=== PATIENT | male | born 1975 | race Caucasian/White ===

== ENCOUNTER 2020-10-17 13:29 | Outpatient (CLI) | payer OTHER, SELFPAY | END 2020-10-17 13:30 | disposition home or self-care (01) | LOC: ANHAUDIO 13:31 | PROVIDERS: PCP Family Medicine; Referring Provider Family Medicine; Visit Provider Family Medicine | DX: H90.3 Sensorineural hearing loss, bilateral (principal) | CPT/HCPCS: 92557; 92567 ==

== ENCOUNTER 2021-01-02 08:31 | Outpatient (CLI) | payer OTHER, SELFPAY | END 2021-01-02 08:32 | disposition home or self-care (01) | LOC: ANHCOVIDVC 08:31 | PROVIDERS: PCP Family Medicine | DX: Z23 Encounter for immunization (principal) | CPT/HCPCS: 0001A; 91300 ==

== ENCOUNTER 2021-01-13 13:00 | Outpatient (RCR) | payer OTHER, SELFPAY | END 2021-01-13 23:59 | disposition home or self-care (01) | LOC: ANHAUDIO 13:00 | PROVIDERS: PCP Family Medicine; Visit Provider Family Medicine | DX: Z46.1 Encounter for fitting and adjustment of hearing aid (principal) | CPT/HCPCS: 99199; V5260; V5267 ==

== ENCOUNTER 2021-01-23 08:26 | Outpatient (CLI) | payer OTHER, SELFPAY | END 2021-01-23 08:27 | disposition home or self-care (01) | LOC: ANHCOVIDVC 08:26 | PROVIDERS: PCP Family Medicine | DX: Z23 Encounter for immunization (principal) | CPT/HCPCS: 0002A; 91300 ==

== ENCOUNTER 2021-04-15 13:26 | Outpatient (RCR) | payer OTHER, SELFPAY | END 2021-04-15 23:59 | disposition home or self-care (01) | LOC: ANHAUDIO 13:26 | PROVIDERS: PCP Family Medicine; Visit Provider Family Medicine | DX: Z46.1 Encounter for fitting and adjustment of hearing aid (principal) | CPT/HCPCS: 99199 ==

== ENCOUNTER 2025-08-26 12:22 | Emergency (ER) | payer BC, SELFPAY ==
--- NOTE | ~2025-08-26 | XR_ITS ---
Examination: XR chest 2V Clinical History: cp, hypertension Comparison: None Technique: PA and Lateral Findings: Cardiomediastinal silhouette normal size and configuration. Lungs clear. No acute bony abnormality. IMPRESSION: 1. No acute cardiopulmonary findings. Reviewed, dictated and finalized at location R. W MACHINE SET UP OPERATOR
--- NOTE | 2025-08-26 12:25 | ECG_ITS ---
Test Date: 2025-08-26 12:43:12 Measurements Intervals [place] Rate: 69 P: 64 ME: 152 QRS: 52 QRSD: 101 T: 23 QT: 367 QTc: 395 Interpretive Statements SINUS RHYTHM BASELINE ARTIFACT- V5 NORMAL ECG No previous ECG available for comparison Electronically Signed On 08-26-2025 19:31:30 [employer] by Javi No D.O.
[2025-08-26 12:26] VITALS: BP 142/86; PULSE 77; RESP 16; TEMP 36.7; O2SAT 100
[2025-08-26 12:54] VITALS: RESP 20; O2SAT 99
[2025-08-26 12:55] LABS: Hematocrit 45.5 % (42.0-52.0); Hemoglobin 15.7 g/dL (14.0-18.0); Immature Granulocyte Percent A 0.2 % (0-0.5); Lymphocytes Absolute Auto 1.23 K/mm3 (0.9-3.2); Mean Corpuscular HGB Conc 34.5 g/dl (32-36); Mean Corpuscular Hemoglobin 30.6 pg (26-34); Mean Corpuscular Volume 88.7 fl (80-100); Nucleated Red Blood Cells Absolute Auto 0.000 K/mm3 (0.0-0.012); Nucleated Red Blood Cells Perc 0.0 % (0.0-0.2); Platelet Count Result 211 k/mm3 (150-375); Red Blood Count 5.13 M/mm3 (4.6-6.20); White Blood Count 4.9 K/mm3 (4.5-10.0)
--- OUTSIDE RECORDS SUMMARY | 2025-08-26 13:05 | XMS_ITS | Encounter Summary ---
Author Organization [facility] Healthcare Address [address] [place] [id number] Care Team Providers Care Stonecutter Assistant Name Role Phone Chidi Spears [facility] Unavailable Unavailable Zenaida Brown DO Primary Care Provider [phone] Encounter Details Date Type Department Care Team (Late st Contact Info) Description 07/31/2025 Results Follow-Up [facility] Primary Care at [id number] [place] [address] Zenaida Brown DO [address] [facility] [address] [place] [address] Total testosterone, PSA screen, Thyroid Function Thida, Additional followed-up results: 4 Social History Tobacco Use Types Packs/Day Years Used Date Smoking Tobacco: Never Passive Smoke Exposure: Never Smokeless Tobacco: Never Alcohol Use Standard Drinks/Week Comments Yes 5 (1 standard drink = 0.6 oz pur e alcohol) AUDIT-C Answer Date Recorded Q1: How often do you have a drink containing alc ohol? 2-3 times a week 07/28/2024 Q2: How many drinks containi ng alcohol do you have on a typical day when you are drinking? 1 or 2 07/28/2024 Q3: How often do you have si x or more drinks on one occasion? Never 07/28/2024 PHQ-2 Answer Date Recorded PHQ-2 Total Score (If total score is 3 or more points, staff should administer the PHQ-9) 0 07/18/2025 Personal Safety Answer Date Recorded Have you ever been in or are you currently in a harmful physical or emotional relationship or is someone making you feel afraid or unsafe? Denies 01/08/2025 Sex and Gender Information Value Date Recorded Sex Assigned at Not on file Legal Sex Male 6:29 AM [employer] Gender Identity Not on file Sexual Orientation Not on file documented as of this encounter Plan of Treatment Not on file documented as of this encounter Visit Diagnoses Not on filedocumented in this encounter Care Teams Stonecutter Assistant Relationship Specialty Start Date End Date Zenaida Brown DO PCP - General Family Medicine 07/18/25 Chidi Spears, MOVIE EDITOR Speech Language Pathologist Speech Therapy 04/11/25 documented as of this encounter
--- OUTSIDE RECORDS SUMMARY | 2025-08-26 13:05 | XMS_ITS | Clinical Summary ---
Author Organization [facility] Address [address] [address] [place] [address] Phone Care Team Providers Care Process Developer Name Role Phone Kirby Maldonado MD Primary Care Provider [phone] Allergies Active Allergy Reactions Criticality Noted Date Comments Ibuprofen Anaphylaxis High 03/15/2023 Iodinated Contrast Media Anaphylaxis High 03/15/2023 Medications rosuvastatin (CRESTOR) 10 mg tablet Take 10 mg by mouth daily. Active ergocalciferol, vitamin D2, (VITAMIN D ORAL) Take by mouth. Active predniSONE (DELTASONE) 10 mg tablet Take 1 tablet (10 mg) by mouth 4 (four) times a day for 5 days 20 Tablet 07/13/2023 12:56 PM CDT 07/12/2023 Active atorvastatin calcium (ATORVASTATIN ORAL) Take by mouth. Active tiZANidine (ZANAFLEX) 4 mg Tablet Take 1 Tablet (4 mg) by mouth every 8 hours as needed for Spasm or Other (See Comment) (neck discomfort) . 30 Tablet 1 03/29/2024 Active Active Problems No known active problems Social History Tobacco Use Types Packs/Day Years Used Date Smoking Tobacco: Never Smokeless Tobacco: Never Sex and Gender Information Value Date Recorded Sex Assigned at Not on file Legal Sex Male 3:27 PM CDT Gender Identity Not on file Sexual Orientation Not on file Last Filed Vital Signs Vital Sign Reading Time Taken Comments Blood Pressure 124/74 05/30/2024 10:08 AM CDT Pulse 84 05/30/2024 10:08 AM CDT Temperature 36.9 C (98.4 F) 05/30/2024 10:08 AM CDT Respiratory Rate 16 05/30/2024 10:08 AM CDT Oxygen Saturation 96% 03/29/2024 1:42 PM CDT Inhaled Oxygen Concentration - - Weight 84.2 kg (185 lb 9.6 oz) 05/30/2024 10:08 AM CDT Height 182.9 cm (6') 05/30/2024 10:08 AM CDT Body Mass Index 25.17 05/30/2024 10:08 AM CDT Plan of Treatment Health Maintenance Due Date Last Done Comments DTAP/TDAP/TD VACCINES (1 - Tdap) 1995 HEPATITIS B VACCINES (1 of 3 - 19+ 3-dose series) 02/1995 COLORECTAL SCREENING 2021 Colorectal Cancer Screening 2021 FIT-DNA Q 3 years 2021 FIT/FOBT Q 1 year 2021 Flex Sig/CT Colonography Q 5 years 2021 INFLUENZA VACCINE (#1) 2025 Insurance [employer] BLUE ACCESS/TRUE BLUE PPO RX [facility] Care Teams Process Developer Relationship Specialty Start Date End Date Kirby Maldonado MD [address] [place] [address] PCP - General Family Practice 09/22/23
--- OUTSIDE RECORDS SUMMARY | 2025-08-26 13:05 | XMS_ITS | Clinical Summary ---
Author Organization [facility] [place] [address] Address [address] [place] [address] Care Team Providers Care Dental Office Coordinator Name Role Phone Chidi Spears AVIATION PROGRAM MANAGER Unavailable Unavailable Zenaida Brown DO Primary Care Provider [phone] Allergies Active Allergy Reactions Criticality Noted Date Comments Ibuprofen Cough,Hives,Itching, Rash, Shortness of breath,Swelling High 09/20/1989 Perflutren Itching High 01/25/2019 Perflutren Lipid Microspheres Cough,Itching,Shortness of breath,Swelling High 11/03/2018 Medications vitamin D3-vitamin K2 25 mcg (1,000 unit)-90 mcg tablet,disintegrati ng Take by mouth Active rosuvastatin (CRESTOR) 20 mg tabletIndications:M ixed hyperlipidemia Take 1 tablet (20 mg total) by mouth daily 90 tablet 3 Active Active Problems Problem Noted Date Diagnosed Date Cervical radiculopathy 07/18/2025 Left arm pain 03/21/2025 Right arm pain 03/21/2025 Pharyngoesophageal dysphagia 03/15/2025 Left varicocele 11/14/2024 Assessment & Plan (11/14/2024 9:18 AM MATERIAL DAMAGE ADJUSTER): F/U with urology as scheduled. Family history of colon cancer 11/14/2024 Encounter for screening colonoscopy 11/14/2024 Cervical stenosis of spine 07/06/2024 Assessment & Plan (11/14/2024 9:18 AM MATERIAL DAMAGE ADJUSTER): Naseem f/u with Dr. Brambila and will montior response. NO new radicular sypmtoms. Palpitations 05/24/2024 Paroxysmal supraventricular tachycardia 05/24/20 24 Chest pain 11/14/2018 Mixed hyperlipidemia 11/14/2018 Assessment & Plan (07/18/2025 3:40 PM CDT): Chronic, well-controlled Obtain labs Continue rosuvastatin 20 mg daily Orders: Comprehensive metabolic panel; Future Lipid panel; Future Hemoglobin A1c; Future rosuvastatin (CRESTOR) 20 mg tablet; Take 1 tablet (20 mg total) by mouth daily Assessment & Plan (11/14/2024 9:17 AM MATERIAL DAMAGE ADJUSTER): COntinues on rosuvastatin. NO new mylagias/arthralgias. History of melanoma 11/14/2018 Assessment & Plan (11/14/2024 9:18 AM MATERIAL DAMAGE ADJUSTER): Cointinue surveillance [facility] dermatology. REviewed sun/skin protection. Resolved Problems Problem Noted Date Diagnosed Date Resolved Date Essential hypertension 11/14/201805/04 Encounters Date Type Department Care Team Description 07/31/2025 Results Follow-Up [facility] Primary Care at [address] [phone] Zenaida Brown DO Total testosterone, PSA screen, Thyroid Function [place], Additional followed-up results: 4 07/30/2025 2:55 PM MATERIAL DAMAGE ADJUSTER Lab [address] [address] Fatigue, unspecified type; Encounter for well adult exam without abnormal findings; Mixed hyperlipidemia 07/18/2025 3:00 PM CDT Office Visit [facility] Primary Care at [address] [address] Zenaida Brown DO Encounter for well adult exam without abnormal findings (Primary Dx); Mixed hyperlipidemia; Fatigue, unspecified type 06/25/2025 Telephone [facility] Primary Care at [address] [address] Chris Das Jul [address] Grimm cancelled 06/01/2025 7:45 AM CDT Therapy [facility] Outpatient Speech Pathology [address] [facility], [address] [place] [address] Chidi Spears, AVIATION PROGRAM MANAGER Pharyngoesophageal dysphagia (Primary Dx) from Last 3 Months Immunizations Immunization Administration Dates Next Due Influenza, Unspecified 06/18/2025,2023,05/09/2024(Deferr ed: Patient Refused),10/01/2023(Deferred: Patient Refused),05/04/2023(Deferred: Patient Refused),10/01/2022(Deferred: Patient Refused),09/20/2022(Deferred: Patient Refused),09/20/2021(Deferred: Patient Refused) Pfizer Sars-Cov-2 Bivalent Vaccination (12+ YRS) 06/18/2025,06/13/2025 Surgical History Surgery Date Site/Laterality Comments VASECTOMY 2001 ORAL SURGERY as a child MELANOMA RESECTION UPPER GASTROINTESTINAL ENDOSCOPY CARDIAC CATHETERIZATION 09/20/2018 - 09/19/2019 COLONOSCOPY 09/20/2018 - 09/19/2019 SPINE SURGERY 2023 Medical History Medical History Date Comments GERD (gastroesophageal reflux disease) 2007 Anxiety 2001 Arthritis 2004 Cancer (HCC) 2005 Brain concussion 1994 Depression 2011 PONV (postoperative nausea and vomiting) as a child Motion sickness Hypertension 2018 Dizziness 1994 HL (hearing loss) 2014 Dental disease 1981 Fracture of nasal bones 1985 Tinnitus 1997 Speech impairment Jul 2024 Voice disorder Jul 2024 Abnormal ECG 2023 Family History Medical History Relation Name Comments Depression Daughter Zenaida Mar Mental illness Daughter Zenaida Mar Allergy (severe) Father Cali Mar Depression Father Cali Mar Memory loss Father Cali Mar Mental illness Father Caliray Mar Stroke Father Cali Green Heart attack Father's Brother Matt Mar Heart attack Maternal Grandfather Torsten Lyleson Hypertension Mother Krystle Zaid Memory loss Mother Krystle Zaid Heart attack Paternal Grandfather Nito Mar Cancer Sister 1 Natalia Esteban defects Sister 2 Isha Developmental delay Son Chin Mar Learning disabilities Son Chin Mar Relation Name Status Comments Daughter Zenaida Green Father Cali Green Father's Brother Matt Green Maternal Grandfather Torsten Melendez Mother Krystle Green Paternal Grandfather Nito Green Sister 1 Natalia Carlito Sister 2 Isha Son Chin Mar Social History Tobacco Use Types Packs/Day Years Used Date Smoking Tobacco: Never Passive Smoke Exposure: Never Smokeless Tobacco: Never Tobacco Cessation:Counseling Given: Not Answered Alcohol Use Standard Drinks/Week Comments Yes 5 [...] on file Legal Sex Male 6:29 AM MATERIAL DAMAGE ADJUSTER Gender Identity Not on file Sexual Orientation Not on file Last Filed Vital Signs Vital Sign Reading Time Taken Comments Blood Pressure 104/70 07/18/2025 2:56 PM CDT Pulse 85 07/18/2025 2:56 PM CDT Temperature 36.8 C (98.3 F) 04/12/2025 9:43 AM CDT Respiratory Rate 16 07/18/2025 2:56 PM CDT Oxygen Saturation 96% 07/18/2025 2:56 PM CDT Inhaled Oxygen Concentration - - Weight 81.7 kg (180 lb 1.6 oz) 07/18/2025 2:56 P M CDT Height 182.9 cm (6') 07/18/2025 2:56 PM CDT Body Mass Index 24.43 07/18/2025 2:56 PM CDT Plan of Treatment Health Maintenance Due Date Last Done Comments Hepatitis C Screening 1975 DTaP/Tdap/Td Vaccine (1 - Tdap) 1987 Hepatitis B Screening 1994 Covid-19 Vaccine ( season) 2025 06/18/2025, 06/13/2025, 03/06/2023, Additional history exists Depression Screening 07/18/2026 07/18/2025, 11/14/19 Regular Well Visit/Exam 18-64 07/18/2026 07/18/2025, 05/09/2024 Colon Cancer Screening-Colonoscopy 01/08/2035 01/08/2025 Influenza Vaccine Completed 06/18/2025, 07/18/2024 Pneumococcal vaccine <65 Aged Out No longer eligible based on patient's age to complete this topic Medical Devices Implanted Type Area Hostess Device Identifier Shelf Expiration Date Model / Serial / Lot [employer] Maxan 10mm Level 1 Spine Cervical Anterior Plate Bone Titanium [id number] - [id number] Implanted:Qty: 1 on 08/08/2024 at [facility] N/A: Spine Cervical [employer] [id number] / / [employer] 4mm 16mm Fix Screw Bone [id number] - [id number] Implanted:Qty: 4 on 08/08/2024 at [facility] N/A: Spine Cervical [employer] [id number] / / [employer] Cage Spinal Cervical 14d X 16w X 7h 6 Degree [id number] - [id number] Implanted:Qty: 1 on 08/08/2024 at [facility] N/A: Spine Cervical [employer] 05/10/2029 [id number] / / [id number] [employer] Graft Bone Filler Peptide Enhanced Syr I Factor 1cc Putty [id number] - [id number] Implanted:Qty: 1 on 08/08/2024 at [facility] N/A: Spine Cervical [employer] 07/20/2026 [id number] / / [id number] Procedures Procedure Name Priority Date/Time Associated Diagnosis Comments DIFFERENTIAL AUTO Routine 07/30/2025 2:5 9 PM MATERIAL DAMAGE ADJUSTER Encounter for well adult exam without abnormal findings LIPID PANEL Routine 07/30/2025 2:59 PM MATERIAL DAMAGE ADJUSTER Encounter for well adult exam without abnormal findings Mixed hyperlipidemia HEMOGLOBIN A1C Routine 07/30/2025 2:59 PM MATERIAL DAMAGE ADJUSTER Encounter for well adult exam without abnormal findings Mixed hyperlipidemia Fatigue, unspecified type CBC WITH AUTO DIFFERENTIAL Routine 07/30/2025 2:59 PM MATERIAL DAMAGE ADJUSTER Encounter for well adult exam without abnormal findings THYROID FUNCTION CASCADE Routine 07/30/2025 2:59 PM MATERIAL DAMAGE ADJUSTER Encounter for well adult exam without abnormal findings Fatigue, unspecified type PSA SCREEN Routine 07/30/2025 2:59 PM MATERIAL DAMAGE ADJUSTER Encounter for well adult exam without abnormal findings TOTAL TESTOSTERONE Routine 07/30/2025 2: 59 PM MATERIAL DAMAGE ADJUSTER Fatigue, unspecified type COLONOSCOPY 01/08/2025 9:43 AM CDT from Last 3 Months or Most Recently Relevant to Health Maintenance Results * Differential, auto (07/30/2025 2:59 PM MATERIAL DAMAGE ADJUSTER) Pathologist [facility] Neutrophil abs 3.15 1.50 - 6.50 K/cumm Imm gran abs 0.02 0.00 - 0.10 K/cumm [facility] Lymphocyte abs 1.57 0.80 - 3.30 K/cumm [facility] Monocyte abs 0.54 0.20 - 0.80 K/cumm [facility] Eosinophil abs 0.13 0.00 - 0.50 K/cumm [facility] Basophil abs 0.02 0.00 - 0.10 K/cumm [facility] Neutrophil pct 58.0 % [facility] Comment: Interpretive Data Percent cell count reference ranges are not reported, since discordance with absolute values may lead to misinterpretation of CBC data. Current Interpretive Data was last revised on 2017. Imm gran pct 0.4 % [facility] Comment: Interpretive Data Percent cell count reference ranges are not reported, since discordance with absolute values may lead to misinterpretation of CBC data. Current Interpretive Data was last revised on 2017. Lymphocyte pct 28.9 % [facility] Comment: Interpretive Data Percent cell count reference ranges are not reported, since discordance with absolute values may lead to misinterpretation of CBC data. Current Interpretive Data was last revised on 2017. Monocyte pct 9.9 % [facility] Comment: Interpretive Data Percent cell count reference ranges are not reported, since discordance with absolute values may lead to misinterpretation of CBC data. Current Interpretive Data was last revised on 2017. Eosinophil pct 2.4 % [facility] Comment: Interpretive Data Percent cell count reference ranges are not reported, since discordance with absolute values may lead to misinterpretation of CBC data. Current Interpretive Data was last revised on 2017. Basophil pct 0.4 % [facility] Comment: Interpretive Data Percent cell count reference ranges are not reported, since discordance with absolute values may lead to misinterpretation of CBC data. Current Interpretive Data was last revised on 2017. Blood 07/30/2025 2:59 PM MATERIAL DAMAGE ADJUSTER 07/30/2025 8:53 PM MATERIAL DAMAGE ADJUSTER [facility] DO LAB BLOOD ORDERABLES Final Resu lt Performing Organization Address [facility] de Phone Number [address] [place] [address] * Thyroid Function [place] (07/30/2025 2:59 PM MATERIAL DAMAGE ADJUSTER) TSH 2.14 0.30 - 4.20 mcIUnit/mL Blood 07/30/2025 2:59 PM MATERIAL DAMAGE ADJUSTER 07/30/2025 8:51 PM MATERIAL DAMAGE ADJUSTER Zenaida Brown LAB BLOOD ORDERABLES Final Resu Performing Organization Address [facility] de Phone Number [address] [place] [address] * PSA screen (07/30/2025 2:59 PM MATERIAL DAMAGE ADJUSTER) PSA-Total 0.71 ng/mL Comment: Interpretive Data AGE SEX REFERENCE INTERVAL 0 minutes-150 years Female None 0 minutes-49 years Male None 50-59 years Male 0-3.90 60-69 years Male 0-5.40 70-79 years Male 0-6.20 80-150 years Male 0-6.20 The Adrian PSA Total assay procedure was used. Results from different manufacturers or methods may not be comparable. Serial testing should be performed using the same method. Current interpretive data last revised 22. Blood 07/30/2025 2:59 PM MATERIAL DAMAGE ADJUSTER 07/30/2025 8:51 PM MATERIAL DAMAGE ADJUSTER [facility] BLOOD ORDERABLES Final Resu lt Performing Organization Address [facility] de Phone Number JAZZMINE [address] [place] [address] * CBC with auto differential (07/30/2025 2:59 PM MATERIAL DAMAGE ADJUSTER) WBC 5.43 3.80 - 9.90 K/cumm Hgb 15.3 13.0 - 17.5 g/dL [facility] Hct 46.2 38.9 - 50.3 % [facility] Plt 219 150 - 400 K/cumm [facility] MPV 9.9 9.1 - 12.3 fL [facility] RBC 4.95 4.30 - 5.80 M/cumm [facility] MCV 93.3 81.3 - 96.4 fL [facility] MCH 30.9 27.1 - 33.3 pg [facility] MCHC 33.1 32.3 - 35.7 g/dL [facility] RDW CV 12.9 11.1 - 14.9 % [facility] RDW SD 44.0 35.7 - 48.1 fL [facility] NRBC abs 0.00 0.00 - 0.01 K/cumm [facility] Blood 07/30/2025 2:59 PM MATERIAL DAMAGE ADJUSTER 07/30/2025 8:53 PM MATERIAL DAMAGE ADJUSTER [facility] BLOOD ORDERABLES Final Resu lt Performing Organization Address [facility] de Phone Number JAZZMINE [address] [place] [address] * Total testosterone (07/30/2025 2:59 PM MATERIAL DAMAGE ADJUSTER) Testosterone 401.00 249.00 - 836.00 ng/dL Blood 07/30/2025 2:59 PM MATERIAL DAMAGE ADJUSTER 07/30/2025 8:51 PM MATERIAL DAMAGE ADJUSTER [facility] ORDERABLES Final Resu lt Performing Organization Address [facility] de Phone Number JAZZMINE [address] [address] * Hemoglobin A1c (07/30/2025 2:59 PM MATERIAL DAMAGE ADJUSTER) Hgb A1C 5.2 4.0 - 5.6 % Estimated Average Glucose 103 mg/dL JAZZMINE Comment: The ADA recommends reporting an estimated Average Glucose (eAG) with all Hemoglobin A1c results using the equation derived from a study of 507 normal and diabetic adults. Minority populations were underrepresented and children were not included. (Diabetes Care 31:8424-3092, 2008). The eAG is not equivalent to a fasting glucose. Blood 07/30/2025 2:59 PM MATERIAL DAMAGE ADJUSTER 07/30/2025 8:53 PM MATERIAL DAMAGE ADJUSTER [facility] LAB BLOOD ORDERABLES Final Resu lt Performing Organization Address [facility] de Phone Number JAZZMINE [address] [address] * (ABNORMAL) Lipid panel (07/30/2025 2:59 PM MATERIAL DAMAGE ADJUSTER) Cholesterol 236(H) 30 - 199 mg/dL Comment: Interpretive Data Ages < or = 19 years Acceptable: <170 mg/dL Borderline high: 170-199 mg/dL High: >or= 200 mg/dL Ages > or = 20 years Desirable: <200 mg/dL Borderline high: 200-239 mg/dL High: >or= 240 mg/dL Literature References: 1. Expert Panel on Integrated Guidelines for Cardiovascular Health and Risk Reduction in Children and Adolescents. Pediatrics 2011;128:S213 2. NCEP Expert Panel. Circulation 2004;110:227 Current Interpretive Data was last revised on 2018. Triglycerides 174(H) <=149 mg/dL JAZZMINE Comment: Interpretive Data Ages < or = 9 years Acceptable: <75 mg/dL Borderline high: 75-99 mg/dL High: >or= 100 mg/dL Ages 10 to 20 years Acceptable: <90 mg/dL Borderline high: 90-129 mg/dL High: >or= 130 mg/dL Ages > or = 20 years Desirable: <150 mg/dL Borderline high: 150-199 mg/dL High: 200-499 mg/dL Very high: >or= 499 mg/dL Literature References: 1. Expert Panel on Integrated Guidelines for Cardiovascular Health and Risk Reduction in Children and Adolescents. Pediatrics 2011;128:S213 2. NCEP Expert Panel. Circulation 2004;110:227 Current Interpretive Data was last revised on 2018. HDL 45 >=40 mg/dL JAZZMINE ACEVEDO Comment: Interpretive Data Ages < or = 19 years Acceptable: >45 mg/dL Borderline low: 40-45 mg/dL Low: <40 mg/dL Ages > or = 20 years Desirable: >or= 60 mg/dL Low: <40 mg/dL Literature References: 1. Expert Panel on Integrated Guidelines for Cardiovascular Health and Risk Reduction in Children and Adolescents. Pediatrics 2011;128:S213 2. NCEP Expert Panel. Circulation 2004;110:227 Current Interpretive Data was last revised on 2018. LDL, calculated 159(H) <=129 mg/dL JAZZMINE ACEVEDO Comment: Interpretive Data Ages < or = 19 years Acceptable: <110 mg/dL Borderline high: 110-129 mg/dL High: >or= 130 mg/dL Ages > or = 20 years Optimal: <100 mg/dL Near optimal: 100-129 mg/dL Borderline high: 130-159 mg/dL High: >160 mg/dL Calculated using the Nathanael LDL-C estimating equation. This equation was implemented on 2024. Prior to this date LDL-C was estimated using the Friedewald equation. Literature References: 1. Expert Panel on Integrated Guidelines for Cardiovascular Health and Risk Reduction in Children and Adolescents. Pediatrics 2011;128:S213 2. NCEP Expert Panel. Circulation 2004;110:227 3. Nathanael Tong al. SULY Cardiol. 2020 January 18;5(5):540-548. doi: 10.1001/jamacardio.2020.0013 Current Interpretive Data was last revised on 2024. Non-HDL Cholesterol 191 mg/dL JAZZMINE Comment: Interpretive Data Ages < or = 19 years Acceptable: <120 mg/dL Borderline high: 120-144 mg/dL High: >145 mg/dL Ages > or = 20 years When triglycerides are >200 mg/dL, Non-HDL cholesterol is a secondary target of therapy with treatment goals that are 30 mg/dL greater than the LDL cholesterol target. Literature References: 1. Expert Panel on Integrated Guidelines for Cardiovascular Health and Risk Reduction in Children and Adolescents. Pediatrics 2011;128:S213 2. NCEP Expert Panel. Circulation 2004;110:227 Current Interpretive Data was last revised on 2018. Chol/HDL ratio 5 JAZZMINE Blood 07/30/2025 2:59 PM MATERIAL DAMAGE ADJUSTER 07/30/2025 8:51 PM MATERIAL DAMAGE ADJUSTER us Zenaida Brown DO LAB BLOOD ORDERABLES Final Resu lt JAZZMINE [address] [facility] [place] [address] * Colonoscopy (01/08/2025 9:43 AM CDT) Anatomical Region Laterality Modality Other Narrative Procedure Note Travon Ocampo MD - 01/08/2025 9:43 AM CDT [facility] Patient Name: Stan Mar Procedure Date: 01/08/2025 9:43 AM Date of : 1975 Admit Type: Outpatient Age: 49 Gender: Male Attending MD: Travon Ocampo M.D. Room: [facility] ENDOSCOPY ROOM 1 Note Status: Finalized Patient Profile: This is a 49 year old male. Sister had colon cancerat age 55. Procedure: Colonoscopy Indications: Screening in patient at increased risk: Familyhistory of 1st-degree relative with colorectal cancerbefore age 60 years, Last colonoscopy: 2019 Referring MD: Kirby Maldonado M.D. Providers: Travon Ocampo M.D. Impression: - The entire examined colon is normal. - Internal hemorrhoids. - No specimens collected. Recommendation: - Repeat colonoscopy in 5 years for screeningpurposes. Medicines: Monitored Anesthesia Care Complications: No immediate complications. Estimated Blood Loss: Estimated blood loss: none. Procedure: Pre-Anesthesia Assessment: - Prior to the procedure, a History and Physicalwas performed, and patient medications and allergieswere reviewed. The patient's tolerance of previous anesthesia was also reviewed. The risks andbenefits of the procedure and the sedation options and risks were discussed with the patient. All questions were answered, and informed consent was obtained. Prior Anticoagulants: The patient has taken noanticoagulant or antiplatelet agents. ASA Grade Assessment: Per anesthesia note and evaluation. After reviewing the risks and benefits, the patient was deemed in satisfactory condition to undergo the procedure. The benefits, risks and alternatives of theprocedure and sedation were discussed and informed consentwas obtained. All questions were answered. Please referto the signed informed consent document in the medical record. The bowel preparation used was Miralax via split dose instruction. The bowel preparation usedwas bisacodyl tablets via split dose instruction. The scope was passed under direct vision. The Pediatric Colonoscope PCF-H190L [id number] was introducedthrough the anus and advanced to the the cecum, identifiedby appendiceal orifice and ileocecal valve. Thequality of the bowel preparation was good. Bowel prep was administered using a split dose. Findings: The perianal and digital rectal examinations were normal. The cecum appeared normal. The colon (entire examined portion) appeared normal. No polyps and no mass lesions noted. Internal hemorrhoids were found during retroflexion. The hemorrhoids were small. Electronically signed by Travon Ocampo M.D. Travon Ocampo M.D. 01/08/2025 11:36:20 AM Number of Addenda: 0 Note Initiated On: 01/08/2025 9:43 AM Procedure Code(s): --- Professional --- 84920, Colonoscopy, flexible; diagnostic, including collection of specimen(s) by brushing or washing, when performed (separateprocedure) Diagnosis Code(s): --- Professional --- Z80.0, Family history of malignant neoplasm of digestive organs K64.8, Other hemorrhoids CPT copyright 2020 [employer]. All rights reserved. The codes documented in this report are preliminary and upon lock corner machine operator reviewmay be revised to meet current compliance requirements. Recognized by the [place] [employer] for promoting quality in endoscopy Travon Ocampo MD ENDOSCOPY PROCEDURES Final Result from Last 3 Months or Most Recently Relevant to Health Maintenance Insurance [employer] [place] Advance Directives For more information, please contact: [phone] * Full Code (Latest Code Status on File) Date Activated Date Inactivated Comments 01/08/2025 10:01 AM 01/08/2025 4:17 PM * Full Code Date Activated Date Inactivated Comments 01/08/2025 10:00 AM 01/08/2025 10:01 AM * Full Code Date Activated Date Inactivated Comments 08/08/2024 11:45 AM 08/09/2024 4:30 PM Care Teams Dental Office Coordinator Relationship Specialty Start Date End Date Zenaida Brown DO PCP - General Family Medicine 07/18/25 Chidi Spears, AVIATION PROGRAM MANAGER Speech Language Pathologist Speech Therapy 04/11/25
[2025-08-26 13:06] LABS: INR 1.0; Prothrombin Time 13.3 Seconds (11.1-14.7)
[2025-08-26 13:07] LABS: Partial Thromboplastin Time 27.8 Seconds (22.3-36.8)
[2025-08-26 13:09] LABS: Alanine Aminotransferase 22 U/L (6-50); Albumin Level 4.6 g/dL (3.5-5.1); Alkaline Phosphatase 53 U/L (38-126); Anion Gap 7 mmol/L (4-12); Aspartate Amino Transferase 25 U/L (17-59); Bilirubin,Total 0.7 mg/dL (0.2-1.3); Blood Urea Nitrogen 17 mg/dL (9-20); Calcium 9.7 mg/dL (8.4-10.2); Carbon Dioxide 26 mmol/L (22-30); Chloride 105 mmol/L (98-107); Estimated CRCL calculation 107 ml/min; Estimated Glomerular Filt Rate > 60; Glucose 105 mg/dL (65-110); Lipase 161 U/L (23-300); Potassium 4.1 mmol/L (3.4-5.0); Sodium 138 mmol/L (137-145); Total Protein 7.6 g/dL (6.3-8.2)
[2025-08-26 13:15] VITALS: BP 125/91; PULSE 77; RESP 16; O2SAT 100
[2025-08-26 13:19] LABS: Troponin I < 0.012 ng/mL (0.000-0.034)
--- NOTE | 2025-08-26 13:35 | ED.GENADULT ---
HPI - General Adult General Chief complaint: Recheck/Abnormal Lab/Rx Stated complaint: elevated BP at home 188/106, CP Time Seen by Provider: 08/26/25 12:57 History of Present Illness HPI narrative: For last 1-2 days, patient has had sensation of palpitations chest tightness, was watching TV last night when he checked his blood pressure and saw that it was 180s over 106 that he is not sure how accurate this blood pressure cuff is. Just wanted make sure he his heart was okay. Related Data Home Medications ?Medication ?Instructions ?Recorded ?Confirmed ?Last Taken ?Type cholecalciferol (vitamin D3) 25 25 mcg PO DAILY 03/18/23 03/18/23 Unknown History mcg (1,000 unit) capsule Allergies Allergy/AdvReac Type Severity Reaction Status Date / Time perflutren Allergy Severe Swelling, Verified 08/26/25 12:30 ITCHING ibuprofen Allergy Unknown THROAT Verified 08/26/25 12:30 SWELLING, ITCHY Review of Systems Review of Systems: All systems reviewed & are unremarkable except as noted in HPI and below PMFSH Past Medical History Medical History (Updated 08/26/25 @ 13:34 by Selma Robertson MD) Family history of colon cancer Radiculopathy, cervical region History of melanoma Vitamin D deficiency Pure hypercholesterolemia, unspecified Anxiety Mild Depression Mild Esophageal stricture GERD (gastroesophageal reflux disease) Wears hearing aid in both ears HTN (hypertension) Surgical History Surgical History (Updated 03/18/23 @ 10:28 by Armond Rojas MD) History of melanoma excision Face, 2005 History of vasectomy History of cardiac catheterization History of oral surgery Due to extra teeth as child Social History Social History (Updated 03/18/23 @ 09:30 by Reyna Lerma MA) Smoking status: Never smoker Additional smoking assessment comments: No smoking Alcohol intake: current Drinks per week: 7 Substance use: never Substance use type: does not use Lack of Transportation: No Lack of Food: Never True Current Housing: I Have Housing Concerned About Future Housing: No Difficulty Paying Gas/Electric Bills: No Difficulty Paying for Meds: No Currently Unemployed: No Education: High School Diploma/GED Difficulty w/ Childcare or Family Care: No Living arrangements: with family Occupation/Education: occupation Gender identity (if verbalized by the patient): Male Sexual Orientation (if Verbalized by the Patient): Straight or Heterosexual Spiritual care concerns: No Exam Narrative: EXAMINATION OF ORGAN SYSTEMS/BODY AREAS: Constitutional: Vital signs per nursing GENERAL:[No acute distress, non-toxic appearing.] HEAD: Normal with no signs of head trauma. EYES: EOMI, conjunctiva normal ENT: Hearing grossly intact LUNGS: Nonlabored breathing. Clear to auscultation bilaterally I HEART: [Regular rate and rhythm], normal equal bilateral radial and DP pulses ABD: [Soft], [nontender to palpation] EXT: Normal range of motion SKIN: [No rashes or lesions.] NEURO: [Alert. No gross focal sensory or strength deficits.] PSYCH: Normal affect Course Vital Signs Vital signs: Vital Signs Temperature 98.1 F 08/26/25 12:26 Pulse Rate 77 08/26/25 12:26 Respiratory Rate 16 08/26/25 12:26 Blood Pressure 142/86 H 08/26/25 12:26 Pulse Oximetry 100 08/26/25 12:26 Oxygen Delivery Room Air 08/26/25 12:26 Temperature 98.1 F 08/26/25 12:26 Pulse Rate 77 08/26/25 13:15 Respiratory Rate 16 08/26/25 13:15 Blood Pressure 125/91 H 08/26/25 13:15 Pulse Oximetry 100 08/26/25 13:15 Oxygen Delivery Room Air 08/26/25 12:26 MDM MDM Narrative Medical decision making narrative: Patient presenting here with some chest tightness, palpitations, checked a blood pressure that was elevated and wanted to make sure everything was okay. On exam patient is well-appearing in no distress, normal bilateral radial and DP pulses, nonlabored respirations, clear to auscultation bilaterally. I will obtain EKG and chest xray to rule out arrhythmia/ischemia, pneumothorax, or other cause of chest discomfort/shortness of breath. Chest x-ray on my independent interpretation does not show any acute abnormality, no pneumothorax or consolidation. EKG - 12-Lead: Interpreted by me. [Sinus rhythm]. Rate 69. [Normal] axis. NM-interval [normal]. QRS duration [normal]. QTc [normal]. [No ST segment elevation or depression]. [T-wave normal]. Impression: No EKG evidence of acute ischemia or dysrhythmia. Labs including troponin is negative, and patient has been having symptoms for more than 6 hours. He is reassured, at time of discharge is in no distress and essentially asymptomatic. I do feel patient is stable for discharge home at this time with followup to their doctor, and return here if symptoms return or worsen. Agreeable to outpatient management. Differential Diagnosis Differential Diagnosis: ACS, anxiety attack, dissection, pneumothorax Lab Data 08/26/25 12:50 08/26/25 12:50 Labs: Lab Results 08/26/25 Range/Units 12:50 WBC 4.9 (4.5-10.0) K/mm3 RBC 5.13 (4.6-6.20) M/mm3 Hgb 15.7 (14.0-18.0) g/dL Hct 45.5 (42.0-52.0) % MCV 88.7 (80-100) fl MCH 30.6 (26-34) pg MCHC 34.5 (32-36) g/dl RDW 12.7 (11.5-14.5) % Plt Count 211 (150-375) k/mm3 MPV 8.9 (7.4-10.4) fl Immature Gran % (Auto) 0.2 (0-0.5) % Neut % (Auto) 63.5 (45.5-73.1) % Lymph % (Auto) 25.3 (18.3-44.2) % [place] % (Auto) 8.8 H (2.6-8.5) % Eos % (Auto) 1.8 (0-4.4) % Baso % (Auto) 0.4 (0.2-1.2) % Lymph # (Auto) 1.23 (0.9-3.2) K/mm3 [place] # (Auto) 0.4 (0.1-0.6) K/mm3 Eos # (Auto) 0.1 (0-0.3) K/mm3 Baso # (Auto) 0.0 (0.0-0.1) K/mm3 Abs Immat Gran (auto) 0.01 (0.00-0.031) K/mm3 Absolute Neuts (auto) 3.1 (1.3-6.7) K/mm3 Absolute Nucleated RBC 0.000 (0.0-0.012) K/mm3 Nucleated RBC % 0.0 (0.0-0.2) % PT 13.3 (11.1-14.7) Seconds INR 1.0 APTT 27.8 (22.3-36.8) Seconds Sodium 138 (137-145) mmol/L Potassium 4.1 (3.4-5.0) mmol/L Chloride 105 (98-107) mmol/L Carbon Dioxide 26 (22-30) mmol/L Anion Gap 7 (4-12) mmol/L BUN 17 (9-20) mg/dL Creatinine 0.80 (0.7-1.3) mg/dL Estim Creat Clear Calc 107 ml/min Estimated GFR > 60 (59 - ) Glucose 105 (65-110) mg/dL Calcium 9.7 (8.4-10.2) mg/dL Total Bilirubin 0.7 (0.2-1.3) mg/dL AST 25 (17-59) U/L ALT 22 (6-50) U/L Alkaline Phosphatase 53 (38-126) U/L Troponin I < 0.012 (0.000-0.034) ng/mL Total Protein 7.6 (6.3-8.2) g/dL Albumin 4.6 (3.5-5.1) g/dL Lipase 161 (23-300) U/L Imaging Data Radiologist's impression: ITS Impressions Chest X-Ray 08/26/25 13:25 IMPRESSION: 1. No acute cardiopulmonary findings. Discharge Plan Discharge Clinical Impression: Feeling of chest tightness Patient Disposition: Home Condition: Stable Instructions: Normal Exam (ED) Additional Instructions: Please follow up with your doctor; you can always return for any further issues. Patient Language: [place] Prescriptions: No Action cholecalciferol (vitamin D3) 25 mcg (1,000 unit) capsule 25 mcg PO DAILY polyethylene glycol 3350 [Miralax] 17 gram/dose powder 17 gm PO DAILY Qty: 255 0RF rosuvastatin 20 mg tablet See Rx Instructions .ROUTE .COMPLEX Qty: 90 0RF Dose Instruction: TAKE 1 TABLET BY MOUTH EVERY DAY Rx Instructions: TAKE 1 TABLET BY MOUTH EVERY DAY Follow-up/Referrals: PHYSICIAN NOT ON STAFF,NONSTAFF [Primary Care Provider]
[2025-08-26 13:40] VITALS: BP 131/95; PULSE 73; RESP 17; O2SAT 96
== END 2025-08-26 13:42 | disposition home or self-care (01) ==
PROVIDERS: Emergency Medicine; Emergency Provider Emergency Medicine
DX: R07.89 Other chest pain (principal); E55.9 Vitamin D deficiency, unspecified; Z85.820 Personal history of malignant melanoma of skin; E78.00 Pure hypercholesterolemia, unspecified; K21.9 Gastro-esophageal reflux disease without esophagitis; I10 Essential (primary) hypertension; Z80.0 Family history of malignant neoplasm of digestive organs
CPT/HCPCS: 36415; 71046; 80053; 83690; 84484; 85025; 85610; 85730; 93005; 99284